=== PATIENT | female | born 1945 | race Caucasian/White ===

== ENCOUNTER 2019-04-09 22:24 | Emergency (ER) | payer OTHER ==
[~2019-04-09] VITALS: Ht 162.6 cm; Wt 75.4 kg
[2019-04-09 22:31] VITALS: Ht 162.6 cm; Wt 75.4 kg
[2019-04-10 01:22] VITALS: BP 169/97
== END 2019-04-10 01:22 | disposition home or self-care (01) ==
LOC: ED 22:24
DX: N39.0 Urinary tract infection, site not specified (principal); I10 Essential (primary) hypertension; E78.5 Hyperlipidemia, unspecified